=== PATIENT | female | born 1980 | race Caucasian/White ===

== ENCOUNTER 2016-12-14 | Outpatient (CLI) | payer OTHER | END 2016-12-14 18:39 | disposition home or self-care (01) | DX: O03.9 Complete or unspecified spontaneous abortion without complication (principal) | CPT/HCPCS: A0425; A0427 ==

== ENCOUNTER 2016-12-14 18:55 | Observation (INO) | payer OTHER ==
[2016-12-14] MEDS ORDERED: PENICILLIN G POTASSIUM 5,000,000 UNIT in SODIUM CHLORIDE 0.9% MINIBAG 100 ML IV ONE (19:07)
[2016-12-14] MEDS ORDERED: SODIUM CHLORIDE 0.9% 1,000 ML IV ONE (19:07)
[2016-12-14] MEDS ORDERED: ONDANSETRON 4 MG/2 ML VIAL IVP PRN (21:06)
[2016-12-14] MEDS: ACETAMINOPHEN 325 MG TABLET PO SCH (23:04)
[2016-12-14] MEDS: ZOLPIDEM 5 MG TABLET PO PRN (23:08)
[2016-12-15] MEDS ORDERED: SODIUM CHLORIDE FLUSH 0.9% 10 ML SYRINGE IVP ONE ×5 (00:14→12:06)
[2016-12-15] MEDS: AMPICILLIN 2 GM in SODIUM CHLORIDE 0.9% MINIBAG 100 ML IV SCH ×4 (00:34→17:51)
[2016-12-15] MEDS: ACETAMINOPHEN 325 MG TABLET PO SCH ×3 (05:08→17:52)
[2016-12-15] MEDS: AZITHROMYCIN 250 MG TABLET PO SCH (10:58)
[2016-12-15] MEDS: DOCUSATE SODIUM 100 MG CAPSULE PO SCH ×2 (10:58→21:07)
[2016-12-15] MEDS: ZOLPIDEM 5 MG TABLET PO PRN (21:07)
[2016-12-16] MEDS: AMPICILLIN 2 GM in SODIUM CHLORIDE 0.9% MINIBAG 100 ML IV SCH ×4 (00:16→18:19)
[2016-12-16] MEDS: ACETAMINOPHEN 325 MG TABLET PO SCH ×4 (00:17→21:34)
[2016-12-16] MEDS ORDERED: SODIUM CHLORIDE FLUSH 0.9% 10 ML SYRINGE IVP ONE ×2 (06:42→12:16)
[2016-12-16] MEDS: DOCUSATE SODIUM 100 MG CAPSULE PO SCH ×2 (08:53→21:34)
[2016-12-16] MEDS: AZITHROMYCIN 250 MG TABLET PO SCH (08:54)
[2016-12-16] MEDS ORDERED: POLYETHYLENE GLYCOL 3350 17 GM PACKET PO PRN (09:04)
[2016-12-16] MEDS: ZOLPIDEM 5 MG TABLET PO PRN (21:34)
[2016-12-17] MEDS: AMPICILLIN 2 GM in SODIUM CHLORIDE 0.9% MINIBAG 100 ML IV SCH ×2 (01:20→09:51)
[2016-12-17] MEDS: ACETAMINOPHEN 325 MG TABLET PO SCH ×2 (03:42→09:51)
[2016-12-17] MEDS ORDERED: PRENATAL VITAMIN TABLET PO SCH (08:00)
[2016-12-17] MEDS: DOCUSATE SODIUM 100 MG CAPSULE PO SCH (09:51)
[2016-12-17] MEDS: AZITHROMYCIN 250 MG TABLET PO SCH (09:52)
== END 2016-12-17 14:00 | disposition home or self-care (01) ==
DX: O30.042 Twin pregnancy, dichorionic/diamniotic, second trimester (principal); O31.12X1 Continuing pregnancy after spontaneous abortion of one fetus or more, second trimester, fetus 1; Z3A.18 18 weeks gestation of pregnancy; Z86.2 Personal history of diseases of the blood and blood-forming organs and certain disorders involving the immune mechanism
CPT/HCPCS: 36415; 76811; 80053; 81001; 83690; 83735; 85025; 86850; 86900; 86901; 87070; 96365; 96366; 99284; 99285; A9270; G0378

== ENCOUNTER 2017-01-06 12:32 | Inpatient (IN) | payer OTHER ==
[2017-01-06] MEDS ORDERED: LACTATED RINGERS 1,000 ML IV ONE ×2 (15:35→15:54)
[2017-01-06] MEDS ORDERED: MORPHINE 2 MG/ML SYRINGE IVP PRN (16:51)
[2017-01-06] MEDS ORDERED: SODIUM CHLORIDE FLUSH 0.9% 10 ML SYRINGE IVP PRN (16:51)
[2017-01-06] MEDS ORDERED: ONDANSETRON 4 MG/2 ML VIAL IVP PRN (16:51)
[2017-01-06] MEDS ORDERED: PROCHLORPERAZINE 10 MG/2 ML VIAL IVP PRN (16:51)
[2017-01-06] MEDS: fentaNYL 100 MCG/2 ML VIAL ONE ×2 (17:13→17:18)
[2017-01-06] MEDS: SODIUM CHLORIDE 0.9% 1,000 ML IV SCH (17:30)
[2017-01-06] MEDS: oxyCODONE 5 MG TABLET PO PRN ×2 (17:59→23:58)
[2017-01-06] MEDS: SODIUM CHLORIDE FLUSH 0.9% 10 ML SYRINGE IVP SCH (22:10)
[2017-01-06] MEDS: ZOLPIDEM 5 MG TABLET PO PRN (22:52)
[2017-01-07] MEDS: SODIUM CHLORIDE 0.9% 1,000 ML IV SCH ×2 (03:08→13:27)
[2017-01-07] MEDS: oxyCODONE 5 MG TABLET PO PRN ×3 (05:28→13:20)
[2017-01-07] MEDS: SODIUM CHLORIDE FLUSH 0.9% 10 ML SYRINGE IVP SCH ×3 (06:12→22:27)
[2017-01-07] MEDS: PANTOPRAZOLE 40 MG TABLET PO SCH (06:12)
[2017-01-07] MEDS: ACETAMINOPHEN 325 MG TABLET PO PRN ×3 (09:20→22:28)
[2017-01-07] MEDS: DOCUSATE SODIUM 100 MG CAPSULE PO SCH (22:27)
[2017-01-07] MEDS: ZOLPIDEM 5 MG TABLET PO PRN (22:29)
[2017-01-08] MEDS: SODIUM CHLORIDE FLUSH 0.9% 10 ML SYRINGE IVP SCH ×2 (06:47→11:00)
[2017-01-08] MEDS: PANTOPRAZOLE 40 MG TABLET PO SCH (06:47)
[2017-01-08] MEDS: ACETAMINOPHEN 325 MG TABLET PO PRN (09:26)
[2017-01-08] MEDS: DOCUSATE SODIUM 100 MG CAPSULE PO SCH (09:27)
== END 2017-01-08 15:50 | disposition home or self-care (01) | DRG 769 ==
PROC: 0W3R7ZZ Control Bleeding in Genitourinary Tract, Via Natural or Artificial Opening (ICD-10-PCS; principal; 2017-01-06 15:00)
PROC: 02HV33Z Insertion of Infusion Device into Superior Vena Cava, Percutaneous Approach (ICD-10-PCS; principal; 2017-01-06 15:00)
PROC: 10D17ZZ Extraction of Products of Conception, Retained, Via Natural or Artificial Opening (ICD-10-PCS; principal; 2017-01-06 15:00)
PROC: 30233N1 Transfusion of Nonautologous Red Blood Cells into Peripheral Vein, Percutaneous Approach (ICD-10-PCS; 2017-01-08)
DX: O72.2 Delayed and secondary postpartum hemorrhage (principal); O99.355 Diseases of the nervous system complicating the puerperium; O90.81 Anemia of the puerperium; D50.0 Iron deficiency anemia secondary to blood loss (chronic); O99.285 Endocrine, nutritional and metabolic diseases complicating the puerperium; E86.1 Hypovolemia; G47.9 Sleep disorder, unspecified; Z87.51 Personal history of pre-term labor; Z87.891 Personal history of nicotine dependence

== ENCOUNTER 2017-01-12 13:29 | Outpatient (CLI) | payer OTHER | END 2017-01-12 13:30 | disposition home or self-care (01) | DX: D50.0 Iron deficiency anemia secondary to blood loss (chronic) (principal) ==

== ENCOUNTER 2017-01-26 15:08 | Outpatient (CLI) | payer OTHER | END 2017-01-26 15:09 | disposition home or self-care (01) | DX: Q51.2 Other doubling of uterus (principal) ==

== ENCOUNTER 2017-02-19 22:47 | Emergency (ER) | payer OTHER | END 2017-02-20 00:10 | disposition home or self-care (01) | DX: S90.31XA Contusion of right foot, initial encounter (principal); W01.0XXA Fall on same level from slipping, tripping and stumbling without subsequent striking against object, initial encounter; Y93.02 Activity, running; Y92.017 Garden or yard in single-family (private) house as the place of occurrence of the external cause; Z87.891 Personal history of nicotine dependence ==

== ENCOUNTER 2017-05-31 19:51 | Emergency (ER) | payer OTHER ==
[2017-05-31 20:43] LABS: BILIRUBIN,URINE NEGATIVE (NEGATIVE)
[2017-05-31 20:46] LABS: HCG UR QUAL NEGATIVE; UA w/ MICROSCOPIC CHARGE YES
[2017-05-31 21:11] LABS: WBC,URINE 0-3 /HPF (0-5)
[2017-05-31 21:12] LABS: UR CULTURE IF IND NOT INDICATED
--- NOTE | 2017-05-31 21:45 | ED Physician Documentation ---
History of Present Illness - Stated complaint Stated Complaint: FEMALE - Chief complaint Chief Complaint: Abd Pain - Additonal information Additional information: Patient is a 36-year-old female who had a miscarriage in December. She had hysteroscopy in April and had what she believes the scar removal performed. She is always had heavy menses and currently she is on hormonal therapy consisting of estrogen initially followed by progesterone the last 10 days of the month. She has had heavy vaginal bleeding and started progesterone about a week ago however the heavy bleeding continues. She says having just does not feel right down near and vaginal area Review of Systems Constitutional: denies: Fever, Chills, Myalgias GI: denies: Abdominal Pain, Abdominal Swelling : reports: Vaginal bleeding, Irregular menses, Missed period. 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(s) : None HEENT: None Psych: None Musculoskeletal: None Derm: None - Past Surgical History Past Surgical History: Yes Ortho: Other /DRYWALL STRIPPER HELPER: Dilation and currettage, Other - Present Medications Home Medications: Ambulatory Orders Medication Instructions Recorded Confirmed Pnv95/Iron Fum/Folic Acid 1 each PO DAILY 10/10/16 05/31/17 [ Caplet] - Allergies Allergies/Adverse Reactions: Allergies Allergy/AdvReac Type Severity Reaction Status Date / Time No Known Drug Allergies Allergy Verified 05/31/17 19:55 - Social History Does the pt smoke?: No Smoking Status: Former smoker Does the pt drink ETOH?: No Does the pt have substance abuse?: No - Immunizations Immunizations are current?: Yes - POLST Patient has POLST: No PD ED PE NORMAL - Vitals Vital signs reviewed: Yes - General General: Alert and oriented X 3, No acute distress, Well developed/nourished - HEENT HEENT: Atraumatic - Neck Neck: Supple, no meningeal sign - Cardiac Cardiac: RRR, No murmur, No gallop - Respiratory Respiratory: No respiratory distress, Clear bilaterally - Abdomen Abdomen: Normal bowel sounds, Soft, Non tender - Derm Derm: Normal color - Extremities Extremities: No deformity - Neuro Neuro: Alert and oriented X 3 - Psych Psych: Normal mood, Normal affect Results - Vitals Vitals: Vital Signs - 24 hr 05/31/17 05/31/17 05/31/17 19:56 21:31 23:21 Temperature 36.2 C L 37.1 C Heart Rate 89 81 80 Respiratory 18 10 L 18 Rate Blood Pressure 130/92 H 115/72 115/65 O2 Saturation 100 100 100 Oxygen O2 Source Room air - Labs Labs: Laboratory Tests 05/31/17 05/31/17 05/31/17 20:00 20:00 22:45 WBC 7.4 RBC 3.22 L Hgb 10.1 L Hct 29.4 L MCV 91.5 MCH 31.5 H MCHC 34.4 RDW 13.7 Plt Count 232 MPV 8.2 Neut # 5.4 Lymph # 1.5 [place] # 0.3 Eos # 0.2 Baso # 0.1 Absolute Nucleated RBC 0.00 Nucleated RBCs 0.0 Urine Color YELLOW Urine Clarity CLEAR Urine pH 7.0 Ur Specific [place] 1.010 1.010 Urine Protein NEGATIVE Urine Glucose (UA) NEGATIVE Urine Ketones NEGATIVE Urine Occult Blood LARGE H Urine Nitrite NEGATIVE Urine Bilirubin NEGATIVE Urine Urobilinogen 0.2 (NORMAL) Ur Leukocyte Esterase NEGATIVE Urine RBC 11-25 H Urine WBC 0-3 Ur Squamous Epith Cells RARE Squamous Urine Bacteria Rare Ur Microscopic Review INDICATED Urine Culture Comments NOT INDICATED Urine HCG, Qual NEGATIVE PD MEDICAL DECISION MAKING - ED course ED course: 36-year-old female who presents with persistent vaginal bleeding and a concern for a possible bladder prolapse. On digital examination she thought she felt something abnormal in the posterior aspect of her vagina. She is status post hysteroscopy and surgery for endometrial scarring in April. She was on estrogen suppositories earlier on and now she is day #8 of progesterone therapy. She has 2 more days and then she is done with her progesterone. She has had moderate bleeding however she does not feel weak or tired. Hemoglobin here is her normal at 10. Vaginal examination fails to show any abnormality. A speculum and bimanual examination was performed. There is no obvious abnormality in the introitus, vaginal mucosa, or cervix. There was some blood and clot. Her uterus was mildly enlarged but not tender. At this point in time I think the patient is safe to be discharged home I expect her have a little bit more withdrawal bleeding when she completes the progesterone it but hopefully should get better. She does have a follow-up with her RIPRAP WORKER next week. Disposition: To home Clinical impression: 1. Dysfunctional uterine bleeding Departure - Departure Disposition: Home, Self Care Clinical Impression: Abnormal vaginal bleeding, Vaginal bleeding Condition: Good Instructions: ED Bleed Irregular Vaginal Follow-Up: ELVIRA CORDERO [Primary Care Provider] -
[2017-05-31 23:07] LABS: BASOPHILS # (AUTO) 0.1 10^3/uL (0.0-0.1); BASOPHILS % (AUTO) 0.9 %; EOSINOPHILS # (AUTO) 0.2 10^3/uL (0.0-0.7); EOSINOPHILS % (AUTO) 2.8 %; HCT - HEMATOCRIT 29.4 % (37.0-47.0); HGB - HEMOGLOBIN 10.1 g/dL (12.0-16.0); LYMPHOCYTES # (AUTO) 1.5 10^3/uL (1.5-3.5); LYMPHOCYTES % (AUTO) 19.7 %; MEAN CORPUSCULAR HEMOGLOBIN 31.5 pg (27.0-31.0); MEAN CORPUSCULAR HGB CONC 34.4 g/dL (32.0-36.0); MEAN CORPUSCULAR VOLUME 91.5 fL (81.0-99.0); MEAN PLATELET VOLUME 8.2 fL (7.9-10.8); MONOCYTES # (AUTO) 0.3 10^3/uL (0.0-1.0); NEUTROPHILS # (AUTO) 5.4 10^3/uL (1.5-6.6); NEUTROPHILS % (AUTO) 72.6 %; RED BLOOD COUNT 3.22 10^6/uL (4.20-5.40); RED CELL DISTRIBUTION WIDTH 13.7 % (12.0-15.0); UNCORRECTED WHITE BLOOD COUNT 7.4 x10^3/uL; WHITE BLOOD COUNT 7.4 x10^3/uL (4.8-10.8)
[2017-05-31 23:22] VITALS: BP 115/65
== END 2017-05-31 23:32 | disposition home or self-care (01) ==
LOC: ED 19:51
DX: N93.8 Other specified abnormal uterine and vaginal bleeding (principal); Z98.890 Other specified postprocedural states; Z87.891 Personal history of nicotine dependence
CPT/HCPCS: 36415; 81001; 81003; 81025; 85025; 87086; 99283

== ENCOUNTER 2018-04-21 22:08 | Emergency (ER) | payer OTHER ==
[2018-04-21 22:34] LABS: BILIRUBIN,URINE NEGATIVE (NEGATIVE); GLUCOSE, URINE (UA) NEGATIVE (NEGATIVE); KETONES,URINE (UA) NEGATIVE (NEGATIVE); LEUKOCYTE ESTERASE, URINE NEGATIVE (NEGATIVE); NITRITE,URINE NEGATIVE (NEGATIVE); OCCULT BLOOD,URINE TRACE-INTA (NEGATIVE); PROTEIN,URINE NEGATIVE (NEGATIVE); UROBILINOGEN,URINE 0.2 (NORMAL) E.U./dL (NORMAL)
[2018-04-21 22:38] LABS: CLARITY,URINE CLEAR (CLEAR)
[2018-04-21 23:10] LABS: BASOPHILS % (AUTO) 0.3 %; EOSINOPHILS # (AUTO) 0.5 10^3/uL (0.0-0.7); EOSINOPHILS % (AUTO) 5.4 %; HGB - HEMOGLOBIN 13.9 g/dL (12.0-16.0); LYMPHOCYTES # (AUTO) 1.8 10^3/uL (1.5-3.5); LYMPHOCYTES % (AUTO) 20.5 %; MEAN CORPUSCULAR HEMOGLOBIN 32.1 pg (27.0-31.0); MEAN CORPUSCULAR HGB CONC 34.1 g/dL (32.0-36.0); MEAN PLATELET VOLUME 8.4 fL (7.9-10.8); MONOCYTES # (AUTO) 0.4 10^3/uL (0.0-1.0); MONOCYTES % (AUTO) 4.3 %; NEUTROPHILS # (AUTO) 6.2 10^3/uL (1.5-6.6); NEUTROPHILS % (AUTO) 69.5 %; PLT - PLATELET COUNT 228 10^3/uL (130-450); RED BLOOD COUNT 4.32 10^6/uL (4.20-5.40); RED CELL DISTRIBUTION WIDTH 12.9 % (12.0-15.0); WHITE BLOOD COUNT 8.9 x10^3/uL (4.8-10.8)
[2018-04-21 23:19] LABS: CALCIUM 9.1 mg/dL (8.5-10.3); CREATININE 0.7 mg/dL (0.4-1.0)
[2018-04-22] MEDS ORDERED: POTASSIUM CHLORIDE 20 MEQ TABLET PO STA (00:06)
--- NOTE | 2018-04-22 00:26 | ED Physician Documentation ---
History of Present Illness - Stated complaint Stated Complaint: BLEEDING/9WKS - Chief complaint Chief Complaint: General - History obtained from History obtained from: Patient - History of Present Illness Timing: Prior to arrival - Additonal information Additional information: 37-year-old female presents the emergency department with vaginal spotting. The patient is currently 9 weeks , currently the patient is denying any abdominal pain or cramping and the bleeding has currently subsided. The patient denies vaginal discharge or dysuria or flank pain. Symptoms are described as mild. No triggering factors. Symptoms spontaneously resolved. No other associated symptoms Review of Systems Constitutional: denies: Fever, Chills Eyes: denies: Discharge Nose: denies: Congestion Cardiac: denies: Chest pain / pressure Respiratory: denies: Dyspnea GI: denies: Abdominal Pain : reports: Vaginal bleeding. 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(s) : None HEENT: None Psych: None Musculoskeletal: None Derm: None - Past Surgical History Past Surgical History: Yes Ortho: Other /MAPPING SUPERVISOR: Dilation and currettage, Other - Present Medications Home Medications: Ambulatory Orders Medication Instructions Recorded Confirmed Pnv95/Iron Fum/Folic Acid 1 each PO DAILY 10/10/16 05/31/17 [ Caplet] Folic Acid 1 mg PO DAILY 04/21/18 04/21/18 Levothyroxine Sodium [Synthroid] 50 mcg PO 04/21/18 Progesterone,Micronized 04/21/18 [Progesterone] - Allergies Allergies/Adverse Reactions: Allergies Allergy/AdvReac Type Severity Reaction Status Date / Time No Known Drug Allergies Allergy Verified 04/21/18 22:16 - Social History Does the pt smoke?: No Smoking Status: Never smoker Does the pt drink ETOH?: No Does the pt have substance abuse?: No - Immunizations Immunizations are current?: Yes - POLST Patient has POLST: No PD ED PE NORMAL - General General: Alert and oriented X 3, No acute distress - HEENT HEENT: Atraumatic, PERRL - Cardiac Cardiac: RRR - Respiratory Respiratory: No respiratory distress, Clear bilaterally - Abdomen Abdomen: Normal bowel sounds, Non tender, Non distended - Derm Derm: Normal color, Warm and dry - Extremities Extremities: No deformity, No edema - Neuro Neuro: Alert and oriented X 3, Normal speech - Psych Psych: Normal mood Results - Vitals Vitals: Vital Signs - 24 hr 04/21/18 04/22/18 22:12 00:36 Temperature 36.8 C 36.6 C Heart Rate 104 H 78 Respiratory 16 17 Rate Blood Pressure 134/90 H 102/56 L O2 Saturation 99 100 Oxygen O2 Source Room air - Labs Labs: Laboratory Tests 04/21/18 04/21/18 04/21/18 22:24 22:55 22:55 WBC 8.9 RBC 4.32 Hgb 13.9 Hct 40.6 MCV 94.0 MCH 32.1 H MCHC 34.1 RDW 12.9 Plt Count 228 MPV 8.4 Neut # (Auto) 6.2 Lymph # (Auto) 1.8 [place] # (Auto) 0.4 Eos # (Auto) 0.5 Baso # (Auto) 0.0 Absolute Nucleated RBC 0.00 Nucleated RBC % 0.0 Sodium Potassium Chloride Carbon Dioxide Anion Gap BUN Creatinine Estimated GFR (MDRD) Glucose Calcium HCG, Quant 39106.00 Urine Color YELLOW Urine Clarity CLEAR Urine pH 6.0 Ur Specific [place] <=1.005 Urine Protein NEGATIVE Urine Glucose (UA) NEGATIVE Urine Ketones NEGATIVE Urine Occult Blood [place] Urine Nitrite NEGATIVE Urine Bilirubin NEGATIVE Urine Urobilinogen 0.2 (NORMAL) Ur Leukocyte Esterase NEGATIVE Ur Microscopic Review NOT INDICATED Urine Culture Comments NOT INDICATED 04/21/18 22:55 WBC RBC Hgb Hct MCV MCH MCHC RDW Plt Count MPV Neut # (Auto) Lymph # (Auto) [place] # (Auto) Eos # (Auto) Baso # (Auto) Absolute Nucleated RBC Nucleated RBC % Sodium 133 L Potassium 3.2 L Chloride 104 Carbon Dioxide 22 Anion Gap 7.0 BUN 5 L Creatinine 0.7 Estimated GFR (MDRD) 95 Glucose 101 H Calcium 9.1 HCG, Quant Urine Color Urine Clarity Urine pH Ur Specific [place] Urine Protein Urine Glucose (UA) Urine Ketones Urine Occult Blood Urine Nitrite Urine Bilirubin Urine Urobilinogen Ur Leukocyte Esterase Ur Microscopic Review Urine Culture Comments - Rads (name of study) No standard instances Radiology: See rad report, Other (OB ultrasound: Impression1: Single viable intrauterine 2. Right ovarian cyst) PD MEDICAL DECISION MAKING - ED course Complexity details: other (The patient's workup shows an intrauterine and the patient currently has no active symptoms. The patient appears appropriate for discharge home and ongoing workup as an outpatient. The patient has OB care and is scheduled to follow-up. I discussed warning signs and recommend returning to the emergency department immediately for worsening or any concerns) - Sepsis Event Vital Signs: Vital Signs - 24 hr 04/21/18 04/22/18 22:12 00:36 Temperature 36.8 C 36.6 C Heart Rate 104 H 78 Respiratory 16 17 Rate Blood Pressure 134/90 H 102/56 L O2 Saturation 99 100 Oxygen O2 Source Room air Departure - Departure Disposition: 01 Home, Self Care Clinical Impression: Vaginal bleeding affecting early , Hypokalemia Ovarian cyst Qualifiers: Laterality: unspecified laterality Qualified Code(s): N83.209 - Unspecified ovarian cyst, unspecified side Condition: Good Instructions: Hypokalemia Dc, Bleeding Early Preg Follow-Up: ELVIRA CORDERO [Primary Care Provider] - Comments: Please follow-up with your PRACTICE CLINICIAN as soon as possible. Please return to the emergency department immediately for worsening symptoms or any concerns
[2018-04-22 00:37] VITALS: BP 102/56
--- NOTE | 2018-04-22 03:02 | Ultrasound Report ---
Procedure Date: 04/22/2018 Accession Number: [id number] / [id number] Procedure: US - OB First Trimester CPT Code: FULL RESULT: EXAM: FIRST TRIMESTER OBSTETRIC ULTRASOUND (Less than 11 weeks) EXAM DATE: 04/22/2018 02:52 AM. CLINICAL HISTORY: Vaginal bleeding. LMP: 02/17/2018. COMPARISONS: None. TECHNIQUE: Transabdominal ultrasound examination with static image documentation. CLINICAL DATES: EGA 9 weeks 1 day with MARY 11/24/2018 based on LMP. ASSESSMENT: Gestational Sac: Single intrauterine. Mean gestational sac diameter: 39.1 mm = 9 weeks 1 day. Embryo: CRL (crown-rump length) 25.7 mm = 9 weeks 2 days. Cardiac activity: 166 beats per minute. Yolk sac: 5.3 mm. Amniotic fluid: Not accurately assessed at this gestational age. Early placenta: Not visible at this gestational age. Other: No perigestational fluid collection demonstrated. MATERNAL STRUCTURES: Uterus: Anteverted. Unremarkable. Cervix: Closed. Right Ovary/Adnexa: Cyst measuring 3.0 x 2.8 x 2.7 cm. The ovary measures 5.0 x 3.8 x 3.2 cm, volume 32 cc. Left Ovary/Adnexa: Unremarkable. The ovary measures 4.0 x 3.1 x 2.6 cm, volume 17 cc. Free Fluid: None. Other: None. IMPRESSION: 1. Single viable intrauterine at EGA 9 weeks 2 days with MARY 11/23/2018 based on crown-rump length, which is concordant with clinical dates. 2. Assigned dating is MARY 11/24/2018 based on LMP. 3. Right ovarian cyst measuring 3 cm. RADIA
== END 2018-04-22 03:40 | disposition home or self-care (01) ==
LOC: ED 22:08
DX: O20.9 Hemorrhage in early pregnancy, unspecified (principal); E87.6 Hypokalemia; O34.81 Maternal care for other abnormalities of pelvic organs, first trimester
CPT/HCPCS: 36415; 76801; 80048; 81003; 84702; 85025; 99283; 99284; A9270; 81001; 86900; 86901; 87086

== ENCOUNTER 2018-05-25 23:00 | Emergency (ER) | payer OTHER ==
--- NOTE | 2018-05-25 23:23 | ED Physician Documentation ---
PD HPI FEMALE - Stated complaint Stated Complaint: FEMALE 14 WEEKS PREG - Chief complaint Chief Complaint: Abd Pain - History obtained from History obtained from: Patient - History of Present Illness Timing - onset: How many hours ago (2) Timing - duration: Hours Timing - details: Abrupt onset Pain level max: 0 Associated symptoms: Other (pressure, vaginal/suprapubic) Contributing factors: - Additional information Additional information: patient had ultrasound three days ago that showed 14 week IUP. she presents due to what she describes as pressure, vaginal and suprapubic area. This is the result of in vitro fertilization. Last year, patient lost twin gestation. previous to that, she had a miscarriage in her first . she denies vaginal bleeding, denies pain or cramping. She is scheduled for circlage on the Review of Systems Constitutional: reports: Reviewed and negative Cardiac: reports: Reviewed and negative Respiratory: reports: Reviewed and negative GI: reports: Reviewed and negative : reports: Now EGA (14 weeks). denies: Dysuria, Frequency PD PAST MEDICAL HISTORY - Past Medical History Past Medical History: Yes Cardiovascular: None Respiratory: None Endocrine/Autoimmune: HyPOthyroidism GI: None CARDIOLOGY FELLOW: Miscarriage(s) : None HEENT: None Psych: None Musculoskeletal: None Derm: None - Past Surgical History Past Surgical History: Yes Ortho: Other /CARDIOLOGY FELLOW: Dilation and currettage, Other - Present Medications Home Medications: Ambulatory Orders Medication Instructions Recorded Confirmed Pnv95/Iron Fum/Folic Acid 1 each PO DAILY 10/10/16 05/31/17 [ Caplet] Folic Acid 1 mg PO DAILY 04/21/18 04/21/18 Levothyroxine Sodium [Synthroid] 50 mcg PO 04/21/18 Progesterone,Micronized 04/21/18 [Progesterone] - Allergies Allergies/Adverse Reactions: Allergies Allergy/AdvReac Type Severity Reaction Status Date / Time No Known Drug Allergies Allergy Verified 05/25/18 23:11 - Social History Does the pt smoke?: No Smoking Status: Never smoker Does the pt drink ETOH?: No Does the pt have substance abuse?: No - Immunizations Immunizations are current?: Yes - POLST Patient has POLST: No PD ED PE NORMAL - General General: Alert and oriented X 3, No acute distress, Well developed/nourished - Cardiac Cardiac: RRR, No murmur - Respiratory Respiratory: No respiratory distress, Clear bilaterally - Abdomen Abdomen: Soft, Non tender Results - Vitals Vitals: Vital Signs - 24 hr 05/26/18 01:21 Heart Rate 82 Respiratory 20 Rate Blood Pressure 109/76 O2 Saturation 98 Oxygen O2 Source Room air - Labs Labs: Laboratory Tests 05/25/18 23:15 Urine Color YELLOW Urine Clarity CLEAR Urine pH 7.0 Ur Specific [place] <=1.005 Urine Protein NEGATIVE Urine Glucose (UA) NEGATIVE Urine Ketones NEGATIVE Urine Occult Blood NEGATIVE Urine Nitrite NEGATIVE Urine Bilirubin NEGATIVE Urine Urobilinogen 0.2 (NORMAL) Ur Leukocyte Esterase NEGATIVE Ur Microscopic Review NOT INDICATED Urine Culture Comments NOT INDICATED - Rads (name of study) OB US Radiology: Prelim report reviewed, See rad report PD MEDICAL DECISION MAKING - ED course Complexity details: reviewed results, re-evaluated patient, considered differential, d/w patient - Sepsis Event Vital Signs: Vital Signs - 24 hr 05/26/18 01:21 Heart Rate 82 Respiratory 20 Rate Blood Pressure 109/76 O2 Saturation 98 Oxygen O2 Source Room air Departure - Departure Disposition: 01 Home, Self Care Clinical Impression: with one fetus in second trimester Condition: Good Instructions: ED Care, ED Pelvic Pain Preg UKO 2 or 3 Tri Follow-Up: ELVIRA CORDERO [Primary Care Provider] - Discharge Date/Time: 05/26/18 02:35
[2018-05-26 00:07] LABS: BILIRUBIN,URINE NEGATIVE (NEGATIVE); GLUCOSE, URINE (UA) NEGATIVE (NEGATIVE); KETONES,URINE (UA) NEGATIVE (NEGATIVE); LEUKOCYTE ESTERASE, URINE NEGATIVE (NEGATIVE); NITRITE,URINE NEGATIVE (NEGATIVE); OCCULT BLOOD,URINE NEGATIVE (NEGATIVE); PROTEIN,URINE NEGATIVE (NEGATIVE); UROBILINOGEN,URINE 0.2 (NORMAL) E.U./dL (NORMAL)
[2018-05-26 00:08] LABS: CLARITY,URINE CLEAR (CLEAR)
[2018-05-26 01:22] VITALS: BP 109/76
--- NOTE | 2018-05-26 01:47 | Ultrasound Report ---
Procedure Date: 05/26/2018 Accession Number: [id number] / [id number] Procedure: US - OB First Trimester CPT Code: FULL RESULT: EXAM: FIRST TRIMESTER OBSTETRIC ULTRASOUND (Less than 11 weeks) EXAM DATE: 05/26/2018 12:39 AM. CLINICAL HISTORY: 13 weeks , pelvic pressure. LMP: 02/17/2018. COMPARISONS: OB FIRST TRIMESTER 04/22/2018 2:22 AM. TECHNIQUE: Transabdominal and transvaginal ultrasound examination with static image documentation. ASSESSMENT: Gestational Sac: Single intrauterine. Embryo: CRL (crown-rump length) 78 mm = 13 weeks 6 days. Cardiac activity: 150 beats per minute. Amniotic fluid: Not accurately assessed at this gestational age. Early placenta: Anterior. Other: No perigestational fluid collection demonstrated. MATERNAL STRUCTURES: Uterus: Anteverted/Retroverted. Unremarkable. Cervix: Small amount of fluid within the cervix. Cervix measures 3.5 cm in length. Right Ovary/Adnexa: Unremarkable. Left Ovary/Adnexa: Unremarkable. Free Fluid: None. Other: None. IMPRESSION: 1. Single viable intrauterine at EGA 13 weeks 6 days with MARY 11/25/2018 based on crown-rump length, which is concordant with clinical dates. 2. Assigned dating is MARY 11/24/2018 based on last menstrual period. RADIA
== END 2018-05-26 02:35 | disposition home or self-care (01) ==
LOC: ED 23:00
DX: O99.89 Other specified diseases and conditions complicating pregnancy, childbirth and the puerperium (principal); R10.9 Unspecified abdominal pain
CPT/HCPCS: 76801; 76817; 81001; 81003; 87086; 99282; 99283

== ENCOUNTER 2018-09-25 19:30 | Emergency (ER) | payer OTHER ==
[2018-09-25 19:57] LABS: BASOPHILS % (AUTO) 0.3 %; EOSINOPHILS # (AUTO) 0.2 10^3/uL (0.0-0.7); EOSINOPHILS % (AUTO) 1.8 %; LYMPHOCYTES # (AUTO) 1.4 10^3/uL (1.5-3.5); MEAN CORPUSCULAR HEMOGLOBIN 33.3 pg (27.0-31.0); MEAN CORPUSCULAR HGB CONC 34.1 g/dL (32.0-36.0); MEAN CORPUSCULAR VOLUME 97.7 fL (81.0-99.0); MEAN PLATELET VOLUME 8.8 fL (7.9-10.8); MONOCYTES # (AUTO) 0.4 10^3/uL (0.0-1.0); MONOCYTES % (AUTO) 4.1 %; NEUTROPHILS # (AUTO) 7.1 10^3/uL (1.5-6.6); NEUTROPHILS % (AUTO) 78.8 %; PLT - PLATELET COUNT 156 10^3/uL (130-450); RED BLOOD COUNT 3.59 10^6/uL (4.20-5.40); RED CELL DISTRIBUTION WIDTH 13.7 % (12.0-15.0)
[2018-09-25 20:09] LABS: ALBUMIN 3.2 g/dL (3.2-5.5); ALBUMIN/GLOBULIN RATIO 0.9 (1.0-2.2); BILIRUBIN,TOTAL 0.2 mg/dL (0.2-1.0); CALCIUM 8.8 mg/dL (8.5-10.3); CREATININE 0.7 mg/dL (0.4-1.0); TOTAL PROTEIN 6.8 g/dL (6.7-8.2)
[2018-09-25] MEDS ORDERED: MAGNESIUM SULFATE 2 GRAM 2 GM/50 ML BAG IV ONE (21:00)
--- NOTE | 2018-09-25 21:06 | ED Physician Documentation ---
History of Present Illness - Stated complaint Stated Complaint: CHEST DISCOMFORT/SOA - Chief complaint Chief Complaint: Cardiac - History obtained from History obtained from: Patient, Family - History of Present Illness Timing: Today Pain level max: 0 Pain level now: 0 - Additonal information Additional information: Patient is a 38-year-old female 3 para 0 who is approximately 32 weeks . She states that she has been feeling short of breath for the last week has seen her OB about this and told it was normal for . Today she has developed intermittent sharp left-sided chest pain. States is feels like a twinge and lasts 1-2 seconds at a time. Also described as palpitations and ski pping a beat. Nothing makes it better or worse. no abd cramping, no vag bleeding. 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(s) : None HEENT: None Psych: Anxiety Musculoskeletal: None Derm: None - Past Surgical History Past Surgical History: Yes Ortho: Other /IT PROJECT MANAGER: Dilation and currettage, Other - Present Medications Home Medications: Ambulatory Orders Medication Instructions Recorded Confirmed Pnv95/Iron Fum/Folic Acid 1 each PO DAILY 10/10/16 05/31/17 [ Caplet] Folic Acid 1 mg PO DAILY 04/21/18 04/21/18 Levothyroxine Sodium [Synthroid] 50 mcg PO 04/21/18 Progesterone,Micronized 04/21/18 [Progesterone] - Allergies Allergies/Adverse Reactions: Allergies Allergy/AdvReac Type Severity Reaction Status Date / Time No Known Drug Allergies Allergy Verified 09/25/18 19:40 - Social History Does the pt smoke?: No Smoking Status: Never smoker Does the pt drink ETOH?: No Does the pt have substance abuse?: No - Immunizations Immunizations are current?: Yes - POLST Patient has POLST: No PD ED PE NORMAL - Vitals Vital signs reviewed: Yes - General General: Alert and oriented X 3, No acute distress - HEENT HEENT: Moist mucous membranes - Neck Neck: Supple, no meningeal sign - Cardiac Cardiac: RRR, Strong equal pulses - Respiratory Respiratory: No respiratory distress, Clear bilaterally, Other (no chest wall tenderness.) - Abdomen Abdomen: Soft, Non tender, Other (gravid) - Back Back: No CVA TTP, No spinal TTP - Derm Derm: Warm and dry - Extremities Extremities: Normal ROM s pain, No edema, No calf tenderness / cord - Neuro Neuro: Alert and oriented X 3 Results - Vitals Vitals: Vital Signs - 24 hr 09/25/18 09/25/18 09/25/18 19:30 21:29 22:13 Temperature 36.0 C L Heart Rate 93 86 83 Respiratory 18 19 20 Rate Blood Pressure 137/95 H 127/86 H 109/70 O2 Saturation 100 98 96 Oxygen O2 Source Room air - EKG (time done) 1937 Rate: Rate (enter#) (92) Rhythm: NSR [place]: Normal Intervals: Normal [place] QRS: Normal Ischemia: Non specific changes - Labs Labs: Laboratory Tests 09/25/18 09/25/18 09/25/18 19:50 19:50 19:50 WBC 9.0 RBC 3.59 L Hgb 12.0 Hct 35.0 L MCV 97.7 MCH 33.3 H MCHC 34.1 RDW 13.7 Plt Count 156 MPV 8.8 Neut # (Auto) 7.1 H Lymph # (Auto) 1.4 L [place] # (Auto) 0.4 Eos # (Auto) 0.2 Baso # (Auto) 0.0 Absolute Nucleated RBC 0.00 Nucleated RBC % 0.0 Sodium 135 Potassium 3.6 Chloride 104 Carbon Dioxide 22 Anion Gap 9.0 BUN 5 L Creatinine 0.7 Estimated GFR (MDRD) 94 Glucose 103 H Calcium 8.8 Phosphorus Magnesium Total Bilirubin 0.2 AST 17 ALT 10 Alkaline Phosphatase 78 Troponin I < 0.04 Total Protein 6.8 Albumin 3.2 Globulin 3.6 Albumin/Globulin Ratio 0.9 L Lipase 28 09/25/18 19:50 WBC RBC Hgb Hct MCV MCH MCHC RDW Plt Count MPV Neut # (Auto) Lymph # (Auto) [place] # (Auto) Eos # (Auto) Baso # (Auto) Absolute Nucleated RBC Nucleated RBC % Sodium Potassium Chloride Carbon Dioxide Anion Gap BUN Creatinine Estimated GFR (MDRD) Glucose Calcium Phosphorus 4.5 Magnesium 1.8 Total Bilirubin AST ALT Alkaline Phosphatase Troponin I Total Protein Albumin Globulin Albumin/Globulin Ratio Lipase PD MEDICAL DECISION MAKING - ED course Complexity details: reviewed results, re-evaluated patient, considered differential, d/w patient, d/w family, d/w business sales consultant ED course: 38-year-old female who is currently over 30 weeks . She is found to have frequent PVCs on the monitor that correspond to her symptoms. Her magnesium level is borderline low and so was given mag. Discussed case with Dr. Wells, OB on-call who recommends following up with the patient's press worker helper. Patient is well-appearing, nontoxic. Afebrile. No hypoxia. No evidence of pulmonary embolus or acute coronary syndrome. Patient counseled regarding signs and symptoms for which I believe and urgent re-evaluation would be necessary. Patient with good understanding of and agreement to plan and is comfortable going home at this time This document was made in part using voice recognition software. While efforts are made to proofread this document, sound alike and grammatical errors may occur. Departure - Departure Disposition: 01 Home, Self Care Clinical Impression: Premature ventricular contraction Condition: Good Instructions: ED Palpitations Follow-Up: ELVIRA CORDERO [Primary Care Provider] - DAVID HAM [Physician No Access] - Within 1 week Comments: You appear to be having premature ventricular contractions today. The magnesium that we gave you should help with this. Follow-up with your press worker helper for further care. I spoke with Dr. Wells, the press worker helper suction drum drier operator [facility]. Discharge Date/Time: 09/25/18 22:36
[2018-09-25 21:18] LABS: MAGNESIUM 1.8 mg/dL (1.7-2.8); PHOSPHORUS 4.5 mg/dL (2.5-4.6)
[2018-09-25] MEDS ORDERED: MAGNESIUM SULFATE 2 GRAM 2 GM/50 ML BAG IV STA (21:23)
[2018-09-25 22:14] VITALS: BP 109/70
== END 2018-09-25 22:36 | disposition home or self-care (01) ==
LOC: ED 19:30
DX: O99.413 Diseases of the circulatory system complicating pregnancy, third trimester (principal); I49.3 Ventricular premature depolarization; Z3A.32 32 weeks gestation of pregnancy; E83.42 Hypomagnesemia
CPT/HCPCS: 36415; 80053; 83690; 83735; 84100; 84484; 85025; 93005; 96365; 99283

== ENCOUNTER 2018-11-24 21:42 | Emergency (ER) | payer OTHER ==
[2018-11-24 22:17] LABS: BASOPHILS % (AUTO) 0.5 %; EOSINOPHILS # (AUTO) 0.3 10^3/uL (0.0-0.7); EOSINOPHILS % (AUTO) 3.1 %; HGB - HEMOGLOBIN 12.7 g/dL (12.0-16.0); LYMPHOCYTES # (AUTO) 1.1 10^3/uL (1.5-3.5); LYMPHOCYTES % (AUTO) 11.8 %; MEAN CORPUSCULAR HGB CONC 33.8 g/dL (32.0-36.0); MEAN CORPUSCULAR VOLUME 97.5 fL (81.0-99.0); MEAN PLATELET VOLUME 8.3 fL (7.9-10.8); MONOCYTES # (AUTO) 0.3 10^3/uL (0.0-1.0); MONOCYTES % (AUTO) 3.2 %; NEUTROPHILS # (AUTO) 7.6 10^3/uL (1.5-6.6); NEUTROPHILS % (AUTO) 81.4 %; PLT - PLATELET COUNT 189 10^3/uL (130-450); RED BLOOD COUNT 3.86 10^6/uL (4.20-5.40); RED CELL DISTRIBUTION WIDTH 13.5 % (12.0-15.0); WHITE BLOOD COUNT 9.3 x10^3/uL (4.8-10.8)
[2018-11-24 22:25] LABS: ALBUMIN 2.9 g/dL (3.2-5.5); ALBUMIN/GLOBULIN RATIO 0.9 (1.0-2.2); ALKALINE PHOSPHATASE 79 IU/L (42-121); ALT ALANINE AMINOTRANSFERASE 15 IU/L (10-60); AST ASPARTATE AMINOTRANSFERASE 22 IU/L (10-42); BILIRUBIN,TOTAL 0.6 mg/dL (0.2-1.0); BUN - BLOOD UREA NITROGEN < 5 mg/dL (6-20); CALCIUM 8.8 mg/dL (8.5-10.3); CARBON DIOXIDE - CO2 24 mmol/L (21-32); CHLORIDE 104 mmol/L (101-111); CREATININE 0.6 mg/dL (0.4-1.0); GFR - MDRD 112 (>89); GLUCOSE 100 mg/dL (70-100); LIPASE 24 U/L (22-51); SODIUM 136 mmol/L (135-145); TOTAL PROTEIN 6.3 g/dL (6.7-8.2)
--- NOTE | 2018-11-24 22:30 | ED Physician Documentation ---
PD HPI ABD PAIN - Stated complaint Stated Complaint: R FLANK PX - Chief complaint Chief Complaint: Abd Pain - History obtained from History obtained from: Patient, Family - History of Present Illness Timing - onset: How many days ago (3) Timing - duration: Days (3) Timing - details: Gradual onset, Still present, Waxing and waning Pain level max: 8 Pain level now: 2 Quality: Cramping, Sharp, Pain Location: RUQ Improved by: BM Worsened by: Moving, Breathing, Position, Palpation Associated symptoms: Constipation. No: Nausea, Vomiting Similar symptoms before: No diagnosis Recently seen: Surgery - Additional information Additional information: 38-year-old female had a section done 3 days ago and she is complained of pain to the right upper quadrant since immediately after the procedure. She was told that her colon was full on evaluation and she was given multiple medica tions to produce bowel movement. She was able have a bowel movement before she left the hospital she felt somewhat improved she was able to have a bowel movement sometime yesterday and again felt improved and today she is not able to have a bowel movement she feels much worse her pain is worse with any movement and deep breathing and she has not had flatus. Review of Systems Constitutional: denies: Fever Eyes: denies: Decreased vision Ears: denies: Ear pain Nose: denies: Rhinorrhea / runny nose, Congestion Throat: denies: Sore throat Cardiac: denies: Chest pain / pressure, Palpitations Respiratory: denies: Dyspnea GI: reports: Abdominal Pain, Constipation. 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) : None HEENT: None Psych: Anxiety Musculoskeletal: None Derm: None Other Past Medical History: benign pvcs - Past Surgical History Past Surgical History: Yes General: Other Ortho: Other /FORM TAMPER OPERATOR: section, Dilation and currettage, Other - Present Medications Home Medications: Ambulatory Orders Medication Instructions Recorded Confirmed Pnv95/Iron Fum/Folic Acid 1 each PO DAILY 10/10/16 05/31/17 [ [place]] Levothyroxine Sodium [Synthroid] 50 mcg PO 04/21/18 Progesterone,Micronized 04/21/18 [Progesterone] RX: Folic Acid 1 mg PO DAILY 04/21/18 04/21/18 RX: Lubiprostone [Amitiza] 24 mcg PO BID PRN #10 capsule 11/25/18 - Allergies Allergies/Adverse Reactions: Allergies Allergy/AdvReac Type Severity Reaction Status Date / Time No Known Drug Allergies Allergy Verified 11/24/18 21:54 - Social History Does the pt smoke?: No Smoking Status: Never smoker Does the pt drink ETOH?: No Does the pt have substance abuse?: No - Immunizations Immunizations are current?: Yes - POLST Patient has POLST: No PD ED PE NORMAL - Vitals Vital signs reviewed: Yes (hypertensive) - General General: Alert and oriented X 3, No acute distress, Well developed/nourished - HEENT HEENT: Atraumatic, PERRL, EOMI - Neck Neck: Supple, no meningeal sign - Cardiac Cardiac: RRR, No murmur - Respiratory Respiratory: No respiratory distress, Clear bilaterally - Abdomen Abdomen: Soft, Other (RUQ tenderness one hand breadth below the costal margin and not present to bimanual palpation of the right kidney or palpation over the gallbladder ) - Back Back: No CVA TTP, No spinal TTP - Derm Derm: Normal color, Warm and dry, No rash - Extremities Extremities: No deformity, No edema, No calf tenderness / cord - Neuro Neuro: Alert and oriented X 3, 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, No motor deficit, No sensory deficit, Normal speech Eye Opening: Spontaneous Motor: Obeys Commands Verbal: Oriented GCS Score: 15 - Psych Psych: Normal mood, Normal affect Results - Vitals Vitals: Vital Signs - 24 hr 11/24/18 11/24/18 11/25/18 21:45 23:50 02:45 Temperature 36.5 C 36.5 C 36.5 C Heart Rate 78 58 L 77 Respiratory 18 20 18 Rate Blood Pressure 118/84 H 128/81 H 122/80 O2 Saturation 99 97 99 11/25/18 11/25/18 04:52 06:38 Temperature 36.4 C L Heart Rate 68 65 Respiratory 18 16 Rate Blood Pressure 128/74 109/72 O2 Saturation 98 97 Oxygen O2 Source Room air - Labs Labs: Laboratory Tests 0211/24/18 11/24/18 22:05 22:05 22:39 WBC 9.3 RBC 3.86 L Hgb 12.7 Hct 37.6 MCV 97.5 MCH 33.0 H MCHC 33.8 RDW 13.5 Plt Count 189 MPV 8.3 Neut # (Auto) 7.6 H Lymph # (Auto) 1.1 L [place] # (Auto) 0.3 Eos # (Auto) 0.3 Baso # (Auto) 0.0 Absolute Nucleated RBC 0.00 Nucleated RBC % 0.0 Sodium 136 Potassium 3.9 Chloride 104 Carbon Dioxide 24 Anion Gap 8.0 BUN < 5 L Creatinine 0.6 Estimated GFR (MDRD) 112 Glucose 100 Calcium 8.8 Total Bilirubin 0.6 AST 22 ALT 15 Alkaline Phosphatase 79 Total Protein 6.3 L Albumin 2.9 L Globulin 3.4 Albumin/Globulin Ratio 0.9 L Lipase 24 Urine Color YELLOW Urine Clarity CLEAR Urine pH 7.5 Ur Specific [place] 1.010 Urine Protein NEGATIVE Urine Glucose (UA) NEGATIVE Urine Ketones NEGATIVE Urine Occult Blood MODERATE H Urine Nitrite NEGATIVE Urine Bilirubin NEGATIVE Urine Urobilinogen 0.2 (NORMAL) Ur Leukocyte Esterase TRACE H Urine RBC 0-5 Urine WBC 0-3 Ur Squamous Epith Cells MOD Squamous H Urine Bacteria None Seen Ur Microscopic Review INDICATED Urine Culture Comments NOT INDICATED - Rads (name of study) CT abd/pel without Radiology: Prelim report reviewed (Impression: 1. No kidney or ureteral stones or obstruction. 2 prominent uterus, with evidence of recent C- section. 3 Prominent air-filled colon noted.), EMP read indepedently, See rad report Procedures - Bedside sono Bedside sono by EMP: With use of bedside ultrasound the right kidney is imaged it is sonographically nontender and there is no evidence of hydronephrosis. The gallbladder is also imaged it is distended and there is no sonographic tenderness to palpation. The abdomen is tender to sonographic palpation below the gallbladder to an area that is gassed out by bowel gas. PD MEDICAL DECISION MAKING - ED course Complexity details: reviewed old records, reviewed results, re-evaluated patient, considered differential, d/w patient, d/w family ED course: 38 y/o female with marked large bowel distention with gas and stool has had similar bloating without as much pain previously with narcotic use and this self resolved. She has had narcotic for her and had her last dose at 6pm yesterday. She has obvious distention and a lot of gasseous distention. She is given enema X 3 and magnesium citrate. She has some relief of the pain with toradal and she is given methylnaltrexone for opiate induced constipation 12mg sub Q. The patient appears to have improvement in her pain despite not much out per rectum. Most of what she has is on the right side and the rest is gas. She will go home now and we have prescribed lubiprostone. Departure - Departure Disposition: Home, Self Care Clinical Impression: Constipation Qualifiers: Constipation type: drug induced constipation Qualified Code(s): K59.03 - Drug induced constipation Condition: Stable Instructions: ED Constipation Follow-Up: ELVIRA CORDERO [Primary Care Provider] - Prescriptions: RX: Lubiprostone [Amitiza] 24 mcg PO BID PRN #10 capsule PRN Reason: Constipation
[2018-11-24 22:46] LABS: BILIRUBIN,URINE NEGATIVE (NEGATIVE); GLUCOSE, URINE (UA) NEGATIVE (NEGATIVE); KETONES,URINE (UA) NEGATIVE (NEGATIVE); LEUKOCYTE ESTERASE, URINE TRACE (NEGATIVE); NITRITE,URINE NEGATIVE (NEGATIVE); OCCULT BLOOD,URINE MODERATE (NEGATIVE); PH,URINE 7.5 PH (5.0-7.5); PROTEIN,URINE NEGATIVE (NEGATIVE); UROBILINOGEN,URINE 0.2 (NORMAL) E.U./dL (NORMAL)
[2018-11-24 22:47] LABS: CLARITY,URINE CLEAR (CLEAR)
[2018-11-24 23:04] LABS: RBC,URINE 0-5 /HPF (0-5)
[2018-11-24 23:05] LABS: BACTERIA,URINE None Seen /HPF (None Seen); SQUAMOUS EPITHELIAL CELL,UR MOD Squamous (<= Few)
--- NOTE | 2018-11-24 23:25 | CT Report ---
Reason: RUQ pain no flatus Procedure Date: 11/24/2018 Accession Number: [id number] / [id number] Procedure: CT - Abdomen/Pelvis W/O CPT Code: FULL RESULT: EXAM: CT ABDOMEN AND PELVIS (CT KUB) EXAM DATE: 11/24/2018 11:01 PM. CLINICAL HISTORY: Right-sided pain since Monday. Recent . COMPARISONS: None. TECHNIQUE: Routine axial helical CT imaging was performed through the abdomen and pelvis without IV contrast. Reconstructions: Coronal and sagittal. In accordance with CT protocol optimization, one or more of the following dose reduction techniques were utilized for this exam: automated exposure control, adjustment of mA and/or KV based on patient size, or use of iterative reconstructive technique. FINDINGS: Lung Bases: Unremarkable. Right Kidney/Ureter: No stones, hydronephrosis, or hydroureter. No perinephric fat stranding. Left Kidney/Ureter: No stones, hydronephrosis, or hydroureter. No perinephric fat stranding. Other Solid Organs: Noncontrast images of the solid organs are grossly unremarkable. Gallbladder/Bile Ducts: Unremarkable. Peritoneal Cavity: Small amount of free air. No free fluid or ricardo adenopathy. Prominent air-filled colon. Pelvic Organs: Large uterus. Unremarkable bladder. Vasculature: Unremarkable. Other: Lower abdominal wall fat stranding and air from recent with no abnormal fluid collections. IMPRESSION: 1. No kidney or ureteral stones or obstruction. 2. Prominent uterus, with evidence of recent . 3. Prominent air-filled colon noted. [facility]
[2018-11-24] MEDS ORDERED: ONDANSETRON 4 MG/2 ML VIAL IVP STA (23:40)
[2018-11-24] MEDS ORDERED: ONDANSETRON 4 MG/2 ML VIAL ONE (23:40)
[2018-11-25] MEDS ORDERED: MAGNESIUM CITRATE 296 ML BOTTLE PO STA (02:35)
[2018-11-25] MEDS ORDERED: KETOROLAC 30 MG/ML VIAL IVP STA (04:41)
[2018-11-25] MEDS ORDERED: METHYLNALTREXONE 12 MG/0.6 ML VIAL SUBQ ONE (05:03)
[2018-11-25 06:42] VITALS: BP 109/72
== END 2018-11-25 06:50 | disposition home or self-care (01) ==
LOC: ED 21:42
DX: K59.03 Drug induced constipation (principal); T40.2X5A Adverse effect of other opioids, initial encounter; E03.9 Hypothyroidism, unspecified
CPT/HCPCS: 36415; 74176; 80053; 81001; 83690; 85025; 96372; 96374; 96375; 99284; 99285; A9270; J2212; 81003; 87086